=== PATIENT | male | born 1965 | race Two or more races ===

== ENCOUNTER 2025-06-04 20:57 | Inpatient (IN) | payer MEDICAID ==
[~2025-06-04] VITALS: Ht 167.6 cm; Wt 73.2 kg
[2025-06-04] MEDS: IV NS 0.9% 1,000 ML BAG IV ONE (22:03)
[2025-06-04 22:10] LABS: PLATELET COUNT (AUTO) 236 K/uL (150-450); RED BLOOD CELL COUNT(AUTO) 2.66 MIL/uL (4.5-6.0); RED CELL DISTRIBUTION WIDTH 14.2 % (11.5-15.0); WHITE BLOOD COUNT (AUTO) 8.2 K/uL (4.3-11.0)
[2025-06-04 22:16] LABS: CALCIUM, SERUM 7.9 mg/dL (8.5-10.1); CREATININE 1.3 mg/dL (0.6-1.3); SODIUM SERUM 137.0 mmol/L (136-145); UREA NITROGEN, BLOOD 29.0 mg/dL (7-18)
[2025-06-04 22:22] LABS: ASPARTATE AMINOTRANSFERASE 16.0 U/L (15-37); TOTAL PROTEIN, SERUM 6.9 g/dL (6.4-8.2)
[2025-06-04 22:23] LABS: INR 1.1 (0.91-1.10)
[2025-06-04 22:24] LABS: LACTIC ACID 0.9 mmol/L (0.4-2.0)
[2025-06-04] MEDS ORDERED: ACETAMINOPHEN 325 MG TABLET ONE (22:29)
[2025-06-04] MEDS: ACETAMINOPHEN 325 MG TABLET PO ONE (22:33)
[2025-06-04 22:59] LABS: APPEARANCE,URINE CLEAR (CLEAR); BLOOD, URINE 2+ Ery/uL (NEGATIVE); LEUKOCYTE ESTERASE ,URINE NEGATIVE (NEGATIVE); NITRITE, URINE NEGATIVE (NEGATIVE); UGLUCOSE 3+ mg/dL (NEGATIVE)
[2025-06-04 23:18] LABS: ADD URINE CULTURE NO; COARSE GRANULAR CASTS,URINE Rare /LPF (None Seen); SQUAMOUS EPITHELIAL CELL,UR 0-2 /HPF (None Seen)
[2025-06-04] MEDS ORDERED: FUROSEMIDE 20 MG/2 ML VIAL ONE (23:58)
[2025-06-04] MEDS ORDERED: PIPERACI/TAZO 3.375GM/D5W 50ML PB IV ONE (23:59)
[2025-06-04] MEDS ORDERED: VANCOMYCIN 1 GM /D5W 250 ML PB IV ONE (23:59)
[2025-06-05] MEDS: PIPERACILLIN /TAZOBACTAM 3.375 G in IV D5W 50 ML IV ONE (00:05)
[2025-06-05] MEDS: FUROSEMIDE 20 MG/2 ML VIAL IV ONE (00:05)
[2025-06-05] MEDS: VANCOMYCIN 1 GM in IV D5W 250 ML IV ONE (00:30)
[2025-06-05] MEDS ORDERED: INSU100V7 SQ (00:54)
[2025-06-05] MEDS ORDERED: LEVO500T90 PO (00:54)
[2025-06-05] MEDS ORDERED: [UNRECOGNIZED DRUG - OTHER] PO (00:54)
[2025-06-05] MEDS ORDERED: DAPA5TAB PO (00:54)
[2025-06-05] MEDS ORDERED: MELA3CAP2 PO (00:54)
[2025-06-05] MEDS ORDERED: INSU100V39 SQ ×2 (00:54)
[2025-06-05] MEDS ORDERED: GABA600T12 PO ×2 (00:54)
[2025-06-05] MEDS ORDERED: IPRA0.2S9 IH ×2 (00:54)
[2025-06-05] MEDS ORDERED: FURO20TA4 PO (00:54)
[2025-06-05] MEDS ORDERED: PANT40TA2 PO (00:55)
[2025-06-05] MEDS ORDERED: NAPR500T6 PO (00:55)
[2025-06-05 02:25] VITALS: BP 148/70; TEMP 98.1; O2SAT 97
[2025-06-05] MEDS ORDERED: DEXTROSE 50%-WATER 50 ML DISP.SYRIN IV PRN (03:00)
[2025-06-05] MEDS ORDERED: DOSING PER PHARMACY-VANCOMYCIN IV XX PRN (03:00)
[2025-06-05] MEDS ORDERED: ACETAMINOPHEN 325 MG TABLET PO PRN ×2 (03:00→11:00)
[2025-06-05] MEDS ORDERED: HYDROCODONE/APAP 5/325MG TABLET PO PRN (03:00)
[2025-06-05] MEDS ORDERED: PIPERACI/TAZO 3.375GM/D5W 50ML PB IV ONE (05:28)
[2025-06-05] MEDS: PIPERACILLIN /TAZOBACTAM 3.375 G in IV D5W 50 ML IV SCH (05:35)
[2025-06-05] MEDS: BLOOD SUGAR DIAGNOSTIC 1 EACH STRIP VI SCH (06:39)
[2025-06-05 07:08] LABS: PLATELET COUNT (AUTO) 267 K/uL (150-450); RED BLOOD CELL COUNT(AUTO) 2.89 MIL/uL (4.5-6.0); RED CELL DISTRIBUTION WIDTH 14.2 % (11.5-15.0); WHITE BLOOD COUNT (AUTO) 7.3 K/uL (4.3-11.0)
[2025-06-05 07:11] LABS: CALCIUM, SERUM 8.0 mg/dL (8.5-10.1); CREATININE 1.3 mg/dL (0.6-1.3); SODIUM SERUM 140.0 mmol/L (136-145); UREA NITROGEN, BLOOD 25.0 mg/dL (7-18)
[2025-06-05 07:26] LABS: LDL 43.0 mg/dL (0-99)
[2025-06-05 08:00] VITALS: BP 140/53; TEMP 99; O2SAT 97
[2025-06-05] MEDS: FUROSEMIDE 40 MG TABLET PO SCH (08:44)
[2025-06-05] MEDS ORDERED: IOHEXOL-350 100 ML VIAL IV ONE (10:47)
[2025-06-05] MEDS ORDERED: ONDANSETRON HCL/PF 4 MG/2 ML VIAL IVP PRN (11:00)
[2025-06-05] MEDS ORDERED: MAGNESIUM HYDROXIDE 30 ML UDC PO PRN (11:00)
[2025-06-05] MEDS ORDERED: MAG HYDROX/AL HYDROX/SIMETH 30 ML UDC PO PRN (11:00)
[2025-06-05] MEDS ORDERED: Z GUARD REMEDY 4 OZ OINT TP PRN (11:00)
[2025-06-05] MEDS ORDERED: ZOLPIDEM TARTRATE 5 MG TABLET PO PRN (11:00)
[2025-06-05 11:30] VITALS: BP 156/64; TEMP 99.9; O2SAT 100
[2025-06-05] MEDS ORDERED: NAPROXEN 500 MG TABLET PO PRN (11:30)
[2025-06-05] MEDS: VANCOMYCIN 750 MG in IV D5W 250 ML IV SCH (13:00)
[2025-06-05 16:00] VITALS: BP 137/44; TEMP 98.6; O2SAT 98
[2025-06-05] MEDS: PANTOPRAZOLE 40 MG TABLET.DR PO SCH (16:25)
[2025-06-05] MEDS: INSULIN REGULAR, HUMAN 100 UNIT/ML 3 ML VIAL SQ PRN (17:34)
[2025-06-05 17:49] LABS: AMPHETAMINE, URINE NEGATIVE (NEGATIVE); BARBITURATE, URINE NEGATIVE (NEGATIVE); BENZODIAZEPINE, URINE NEGATIVE (NEGATIVE); CANNABINOID, URINE NEGATIVE (NEGATIVE); COCCAINE, URINE NEGATIVE (NEGATIVE); OPIATE, URINE NEGATIVE (NEGATIVE)
[2025-06-05] MEDS: LOSARTAN POTASSIUM 50 MG TABLET PO SCH (19:00)
[2025-06-05 20:00] VITALS: BP 128/67; TEMP 97.9; O2SAT 97
[2025-06-05] MEDS: GABAPENTIN 300 MG CAPSULE PO SCH ×2 (20:14→22:39)
[2025-06-05] MEDS ORDERED: IV NS 0.9% 250 ML IV ONE (20:59)
[2025-06-05] MEDS ORDERED: IOHEXOL-300 100 ML VIAL IV ONE (20:59)
[2025-06-05] MEDS: INSULIN GLARGINE, 100 UNIT/ML CARTRIDGE SQ SCH (22:00)
[2025-06-06] VITALS (9 sets, daily range): BP systolic 119–138; BP diastolic 52–73; TEMP 98.1–99.7; O2SAT 96–99
[2025-06-06 07:33] LABS: PLATELET COUNT (AUTO) 311 K/uL (150-450); RED BLOOD CELL COUNT(AUTO) 2.80 MIL/uL (4.5-6.0); RED CELL DISTRIBUTION WIDTH 14.5 % (11.5-15.0); WHITE BLOOD COUNT (AUTO) 8.6 K/uL (4.3-11.0)
[2025-06-06] MEDS: IPRATROPIUM NEB FS 0.5 MG/2.5 ML AMPUL.NEB IH SCH (07:46)
[2025-06-06 08:14] LABS: CALCIUM, SERUM 7.6 mg/dL (8.5-10.1); CREATININE 1.3 mg/dL (0.6-1.3); PHOSPHORUS 3.0 mg/dL (2.5-4.9); SODIUM SERUM 139.0 mmol/L (136-145); UREA NITROGEN, BLOOD 19.0 mg/dL (7-18)
[2025-06-06 08:22] LABS: IRON, SERUM 13.0 ug/dl (50-175)
[2025-06-06] MEDS: DAPAGLIFLOZIN PROPANEDIOL 5 MG TABLET PO SCH (08:48)
[2025-06-06] MEDS: FUROSEMIDE 40 MG/4 ML VIAL IV SCH (12:02)
[2025-06-06 15:32] LABS: HIV-1/2 ANTIBODY NON REACTIVE (NONREACTIVE)
[2025-06-07] VITALS (14 sets, daily range): BP systolic 114–134; BP diastolic 42–62; TEMP 97.8–99; O2SAT 94–100
[2025-06-07 07:03] LABS: PLATELET COUNT (AUTO) 338 K/uL (150-450); RED BLOOD CELL COUNT(AUTO) 2.97 MIL/uL (4.5-6.0); RED CELL DISTRIBUTION WIDTH 14.1 % (11.5-15.0); WHITE BLOOD COUNT (AUTO) 8.3 K/uL (4.3-11.0)
[2025-06-07 07:26] LABS: CALCIUM, SERUM 8.2 mg/dL (8.5-10.1); CREATININE 1.4 mg/dL (0.6-1.3); SODIUM SERUM 137.0 mmol/L (136-145); UREA NITROGEN, BLOOD 20.0 mg/dL (7-18)
[2025-06-07] MEDS: FERROUS SULFATE (325 MG) 325 MG/TAB TABLET PO SCH (08:49)
[2025-06-07] MEDS: INSULIN GLARGINE, 100 UNIT/ML CARTRIDGE SQ SCH (22:00)
[2025-06-07] MEDS: *INSULIN REGULAR(HUMULIN R)HUM 100 UNIT/ML VIAL SQ PRN (22:42)
[2025-06-08] VITALS (11 sets, daily range): BP systolic 129–140; BP diastolic 56–75; TEMP 97.7–99; O2SAT 96–100
[2025-06-08 06:18] LABS: PLATELET COUNT (AUTO) 392 K/uL (150-450); RED BLOOD CELL COUNT(AUTO) 2.99 MIL/uL (4.5-6.0); RED CELL DISTRIBUTION WIDTH 14.2 % (11.5-15.0); WHITE BLOOD COUNT (AUTO) 8.4 K/uL (4.3-11.0)
[2025-06-08 06:38] LABS: CALCIUM, SERUM 8.2 mg/dL (8.5-10.1); CREATININE 1.3 mg/dL (0.6-1.3); SODIUM SERUM 139.0 mmol/L (136-145); UREA NITROGEN, BLOOD 23.0 mg/dL (7-18)
[2025-06-08] MEDS: FUROSEMIDE 40 MG/4 ML VIAL IV SCH (08:59)
[2025-06-08 15:11] LABS: COCCIDIOIDES Abs, IgG,EIA 0.5 EIA Units (.); COCCIDIOIDES Abs, IgM,EIA 0.2 EIA Units (.)
[2025-06-08] MEDS: MEROPENEM 1 G in IV NS 0.9% 100 ML IV SCH (20:22)
[2025-06-09] VITALS (11 sets, daily range): BP systolic 125–143; BP diastolic 65–88; TEMP 97.7–98.8; O2SAT 95–100
[2025-06-09 07:34] LABS: PLATELET COUNT (AUTO) 455 K/uL (150-450); RED BLOOD CELL COUNT(AUTO) 3.22 MIL/uL (4.5-6.0); RED CELL DISTRIBUTION WIDTH 14.3 % (11.5-15.0); WHITE BLOOD COUNT (AUTO) 7.2 K/uL (4.3-11.0)
[2025-06-09 08:24] LABS: CALCIUM, SERUM 8.6 mg/dL (8.5-10.1); CREATININE 1.1 mg/dL (0.6-1.3); SODIUM SERUM 140.0 mmol/L (136-145); UREA NITROGEN, BLOOD 23.0 mg/dL (7-18)
[2025-06-09] MEDS ORDERED: ERTA1VIA IJ (08:34)
[2025-06-09] MEDS ORDERED: POTA-58 PO ×2 (08:40→08:44)
[2025-06-09] MEDS ORDERED: FURO-144 PO (08:40)
[2025-06-09] MEDS ORDERED: LOSA50TA39 PO (08:41)
== END 2025-06-09 18:55 | DRG 139 ==
LOC: EDBD 21:20 → ER 21:20 → TELE 06-05 01:15
PROVIDERS: ADMIT Internal Medicine; ATTEND Internal Medicine
PROC: 02HV33Z Insertion of Infusion Device into Superior Vena Cava, Percutaneous Approach (ICD-10-PCS; principal; 2025-06-09)
DX: J15.9 Unspecified bacterial pneumonia (principal); M86.171 Other acute osteomyelitis, right ankle and foot; D50.9 Iron deficiency anemia, unspecified; E11.40 Type 2 diabetes mellitus with diabetic neuropathy, unspecified; E11.621 Type 2 diabetes mellitus with foot ulcer; E11.21 Type 2 diabetes mellitus with diabetic nephropathy; E11.69 Type 2 diabetes mellitus with other specified complication; Z79.4 Long term (current) use of insulin; Z79.84 Long term (current) use of oral hypoglycemic drugs; Z89.411 Acquired absence of right great toe; Z20.822 Contact with and (suspected) exposure to COVID-19; L97.529 Non-pressure chronic ulcer of other part of left foot with unspecified severity; Z89.412 Acquired absence of left great toe; Z89.429 Acquired absence of other toe(s), unspecified side; Z16.23 Resistance to quinolones and fluoroquinolones; I70.0 Atherosclerosis of aorta; J43.9 Emphysema, unspecified; Y95 Nosocomial condition; Z79.51 Long term (current) use of inhaled steroids; Z79.899 Other long term (current) drug therapy
CPT/HCPCS: 36415; 71045-TC; 71270-TC; 73718-TC; 80048-TC; 80061-TC; 80076-TC; 80202-TC; 81001; 82962-TC; 83540-TC; 83605-TC; 83735-TC; 83880; 84100-TC; 84439-TC; 84443-TC; 84484-TC; 85025-TC; 85730-TC; 86803; 87040-TC; 87070-TC; 87081-TC; 87086-TC; 87205-TC; 87806; 93307-TC; 94760-TC; 94799-TC; A4223; A6223; G0378; J1815; J1938; J2185; J2543; J3373; J3374; J7030; J7050; J7060; Q9967